=== PATIENT | female | born 1960 | race Caucasian/White ===

== ENCOUNTER → 2017-05-26 | Outpatient (CLI) | payer OTHER | LOC: FIMAGING 12:59 | PROVIDERS: ATTEND Family Medicine | DX: Z12.31 Encounter for screening mammogram for malignant neoplasm of breast (principal) | CPT/HCPCS: G0202 ==

== ENCOUNTER → 2017-06-30 | Outpatient (CLI) | payer OTHER | LOC: FIMAGING 11:12 | PROVIDERS: ATTEND Obstetrics & Gynecology Gynecology | DX: Z13.820 Encounter for screening for osteoporosis (principal); Z87.81 Personal history of (healed) traumatic fracture ==

== ENCOUNTER → 2018-02-07 | Outpatient (CLI) | payer OTHER ==
[~2018-02-07] MED LIST: GADOBUTROL 10 ML VIAL IVP ONE
== END ==
LOC: FIMAGING 12:16
PROVIDERS: ATTEND Family Medicine
DX: R92.8 Other abnormal and inconclusive findings on diagnostic imaging of breast (principal); Z15.01 Genetic susceptibility to malignant neoplasm of breast
CPT/HCPCS: 0159T; A9585; C8908

== ENCOUNTER → 2018-02-27 | Outpatient (CLI) | payer OTHER | LOC: BMCIMAGING 09:18 | PROVIDERS: ATTEND Family Medicine | DX: R92.8 Other abnormal and inconclusive findings on diagnostic imaging of breast (principal) ==

== ENCOUNTER 2018-04-06 07:16 | Outpatient (CLI) | payer OTHER ==
[2018-04-06] MEDS ORDERED: fentaNYL 100 MCG/2 ML INJ IVP PRN (07:33)
[2018-04-06] MEDS ORDERED: FLUMAZENIL 0.5 MG/5 ML MDV IVP PRN (07:33)
[2018-04-06] MEDS ORDERED: NALOXONE HCL 0.4 MG/ML INJ IVP PRN (07:33)
[2018-04-06] MEDS ORDERED: ONDANSETRON 4 MG/2 ML VIAL IVP ONE (07:33)
[2018-04-06] MEDS ORDERED: MIDAZOLAM 2 MG/2 ML VIAL IVP PRN (07:33)
[2018-04-06] MEDS ORDERED: MEPERIDINE 25 MG/ML SYR IVP PRN (07:33)
[2018-04-06] MEDS ORDERED: NS 1,000 ML IV SCH (07:45)
[2018-04-06] MEDS ORDERED: GADOBUTROL 10 ML VIAL IVP ONE (08:44)
[2018-04-06] MEDS ORDERED: BUPIVACAINE 0.5% 30 ML SDV ONE (08:53)
[2018-04-06] MEDS ORDERED: NA BICARBONATE 50 MEQ/50 ML VIAL ONE (08:53)
[2018-04-06] MEDS ORDERED: LIDOCAINE 1% 5 ML SDV ONE (08:53)
--- NOTE | 2018-04-06 09:17 | PDPROPOC ---
Sedation Plan of Care Sedation Plan of Care: vital signs stable, mental status noted, patient educated of risks, benefits, alternatives, patient can tolerate sedation ASA Classification: ASA 1 Planned drugs: fentanyl, midazolam Mallampati Score: Class 2 Mallampati Reference Image: Patient passed 3-3-2 rule?: Yes
--- NOTE | 2018-04-06 09:17 | PDGENHP ---
History & Physical Chief Complaint: abnl breast MRI Relevant Physical Exam: lungs clear, RRR Cardiorespiratory Assessment: lungs clear, RRR
[2018-04-06] MEDS ORDERED: ACETAMINOPHEN 325 MG TAB PO PRN (10:36)
[2018-04-06] MEDS ORDERED: ONDANSETRON 4 MG/2 ML VIAL IVP PRN (10:36)
[2018-04-06 16:16] VITALS: BP 132/65
== END 2018-04-06 11:00 | disposition home or self-care (01) ==
LOC: FIMAGING 07:16
PROVIDERS: ATTEND Family Medicine
PROC: 0HBU3ZX Excision of Left Breast, Percutaneous Approach, Diagnostic (ICD-10-PCS; principal; 2018-04-06)
DX: N60.12 Diffuse cystic mastopathy of left breast (principal)
CPT/HCPCS: A9585; J2250; J2310; J3010

== ENCOUNTER 2018-05-15 10:11 | Observation (INO) | payer OTHER ==
[2018-05-16] MEDS ORDERED: LR 1,000 ML IV ONE (09:45)
[2018-05-16] MEDS ORDERED: BACITRACIN ZINC 14.2 GM OINTTUBE TP ONE (10:03)
[2018-05-16] MEDS ORDERED: BACITRACIN 50,000 UNITS/10 ML SYR IRR ONE (10:04)
[2018-05-16] MEDS ORDERED: ceFAZolin 1 GM/5 ML SYR ONE (10:04)
[2018-05-16] MEDS ORDERED: METHYLENE BLUE 0.5% 50 MG/10 ML AMP ONE (10:04)
[2018-05-16] MEDS ORDERED: GENTAMICIN SULFATE 80 MG/2 ML VIAL ONE (10:04)
--- NOTE | 2018-05-16 10:47 | PDHPUP ---
History & Physical Update H&P update statement: This history and physical update is based on an assessment of the patient which was completed after admission or registration (within 24 hours), but prior to the surgery/procedure. H&P update: H&P reviewed & patient examined, no change in patient's condition since H&P completed
--- NOTE | 2018-05-16 10:51 | POSTOPPROG ---
Post Op Note Date of Operation: 05/16/18 Surgeon: Patrice Lovelace Manager Company: Vianney Lazcano PA-C Anesthesia: GET(General Endotracheal) Pre-op Diagnosis: Atypical ductal hyperplasia Post-op Diagnosis: same Procedure: Bilateral simple mastectomy with left SLNB Findings: Bilateral breast tissue Inf/Abcess present in the surg proc area at time of surgery?: No EBL: Minimal Complications: no immediate Drains: Jamie Guerrero
[2018-05-16] MEDS ORDERED: METOCLOPRAMIDE 10 MG/2 ML VIAL IVP ONE (11:00)
[2018-05-16] MEDS ORDERED: GABAPENTIN 300 MG CAP PO ONE (11:15)
[2018-05-16] MEDS ORDERED: MIDAZOLAM 2 MG/2 ML VIAL IVP ONE (11:25)
--- NOTE | 2018-05-16 11:28 | PDANEPAE ---
ANE History of Present Illness brca ANE Past Medical History - Cardiovascular History Hx Hypertension: No Hx Arrhythmias: No Hx Chest Pain: No Hx Coronary Artery / Peripheral Vascular Disease: No Hx CHF / Valvular Disease: No Hx Palpitations: No - Pulmonary History Hx COPD: No Hx Asthma/Reactive Airway Disease: No Hx Recent Upper Respiratory Infection: No Hx Oxygen in Use at Home: No Hx Sleep Apnea: No Sleep Apnea Screening Result - Last Documented: Negative Pulmonary History Comment: 04/2015-sinus inf., resolving. - Neurologic History Hx Cerebrovascular Accident: No Hx Seizures: No Hx Dementia: No - Endocrine History Hx Diabetes: No - Renal History Hx Renal Disorders: No - Liver History Hx Hepatic Disorders: No - Neurological & Psychiatric Hx Hx Neurological and Psychiatric Disorders: Yes Neurological / Psychiatric History Comment: Depression, anxiety, ADHD. - Cancer History Hx Cancer: Yes Cancer History Comment: skin. new diagnosis breast ca - Congenital Disorder History Hx Congenital Disorders: No - GI History Hx Gastrointestinal Disorders: Yes Gastrointestinal History Comment: Chronic constipation,gastroperisis. - Other Health History Other Health History: Sinus issues. Jaw arthritis. - Chronic Pain History Chronic Pain: No - Surgical History Prior Surgeries: 2014-gallbladder removal; sinus surgery 2014, c section; 2014- R thumb surg. 1999-uterine ablation. 1985-api. 1982-upper & lower jaw revision. 1993-bilateral sinus surg. neck lift 2017 ANE Review of Systems Review of Systems: - Exercise capacity METS (RN): 6 METS ANE Patient History - Allergies Allergies/Adverse Reactions: No Known Allergies Allergy (Verified 05/12/18 14:52) - Home Medications Home Medications: buPROPion XL [Wellbutrin 150mg XL] 450 mg PO DAILY 09/26/15 [Last Taken 07:00] Domperidone 10 mg PO BID 04/04/18 [Last Taken 05/16/18 07:40] Polyethylene Glycol 3350 [Miralax 17 gm (*)] 17 gm PO DAILY 04/04/18 [Last Taken 05/15/18] Herbals/Supplements -Info Only 1 ea PO DAILY 05/10/18 [Last Taken 05/15/18] methYLPHENIDATE HCL [Ritalin 10mg (*)] 10 mg PO DAILY@12 05/10/18 [Last Taken ] methYLPHENIDATE HCL [Ritalin 10mg (*)] 20 mg PO DAILY 05/10/18 [Last Taken 05/15] Keflex 05/16/18 [Last Taken 05/16/18 07:00] - NPO status NPO Since - Liquids (Date): 05/15/18 NPO Since - Liquids (Time): 22:00 NPO Since - Solids (Date): 05/15/18 NPO Since - Solids (Time): 22:00 - Smoking Hx Smoking Status: Never smoked - Family Anes Hx Family Hx Anesthesia Complications: Adopted. ANE Labs/Vital Signs - Vital Signs Blood Pressure: 130/74 Heart Rate: 62 Respiratory Rate: 18 O2 Sat (%): 99 Height: 162.56 cm Weight: 56.699 kg ANE Physical Exam - Airway Neck exam: FROM Mallampati Score: Class 2 Mouth exam: normal dental/mouth exam - Pulmonary Pulmonary: no respiratory distress - Cardiovascular Cardiovascular: regular rate and rhythym - ASA Status ASA Status: II ANE Anesthesia Plan Anesthesia Plan: general endotracheal anesthesia Regional Anesthesia: POPC/PSR
[2018-05-16] MEDS ORDERED: fentaNYL 100 MCG/2 ML INJ ONE ×3 (11:40→15:30)
[2018-05-16] MEDS ORDERED: ROCURONIUM 50 MG/5 ML VIAL ONE (11:40)
[2018-05-16] MEDS ORDERED: PROPOFOL 200 MG/20 ML VIAL ONE (11:40)
[2018-05-16] MEDS ORDERED: ZOLPIDEM TARTRATE 5 MG TAB PO PRN (13:55)
[2018-05-16] MEDS ORDERED: ONDANSETRON 4 MG/2 ML VIAL IVP PRN ×2 (13:55→14:11)
[2018-05-16] MEDS ORDERED: METOCLOPRAMIDE 10 MG/2 ML VIAL IVP PRN (13:55)
[2018-05-16] MEDS ORDERED: ACETAMINOPHEN 325 MG TAB PO PRN (13:55)
[2018-05-16] MEDS ORDERED: NALOXONE HCL 0.4 MG/ML INJ IVP PRN (14:11)
[2018-05-16] MEDS ORDERED: PROMETHAZINE HCL 25 MG/ML INJ IVP PRN (14:11)
[2018-05-16] MEDS ORDERED: ONDANSETRON 4 MG/2 ML VIAL ONE ×2 (14:55→15:30)
[2018-05-16] MEDS ORDERED: KETOROLAC 30 MG/1 ML SDV ONE (14:55)
[2018-05-16] MEDS ORDERED: DEXAMETHASONE 4 MG/ML VIAL ONE (14:56)
[2018-05-16] MEDS ORDERED: PHENYLEPHRINE HCL 100 MCG/ML SYR ONE (14:56)
[2018-05-16] MEDS ORDERED: ePHEDrine SULFATE 25 MG/5 ML SYR ONE (14:56)
--- NOTE | 2018-05-16 15:11 | POSTOPPROG ---
Post Op Note Date of Operation: 05/16/18 Surgeon: Kyle Lagos Windows Application Developer: Marvin BENJAMIN Anesthesia: GET(General Endotracheal) Pre-op Diagnosis: atypical ductal hyperplasia Post-op Diagnosis: Same Indication: atypical ductal hyperplasia Procedure: Tissue sustainable agriculture specialist reconstruction Findings: see op note Inf/Abcess present in the surg proc area at time of surgery?: No EBL: Minimal (20cc) Total fluids administered: 1400c Complications: none Drains: Jamie Guerrero (x4)
[2018-05-16] MEDS ORDERED: METOCLOPRAMIDE 10 MG/2 ML VIAL ONE (15:20)
--- NOTE | 2018-05-16 15:21 | POSTANESTH ---
Post Anesthetic Evaluation Cardiovascular Status: Normal, Stable Respiratory Status: Normal, Stable Level of Consciousness/Mental Status: Can Participate in Eval Pain Control: Adequate, Prn Tx Ordered Nausea/Vomiting Control: Adequate, Prn Tx Ordered Complications Possibly Related to Anesthesia: None Noted
[2018-05-16] MEDS: fentaNYL 100 MCG/2 ML INJ IVP PRN ×2 (15:31→15:49)
--- NOTE | 2018-05-16 15:33 | GOP ---
[f rep st] OPERATIVE REPORT DATE OF OPERATION: 05/16/2018 SURGEON: Kyle Lagos MD APPRENTICE/LINEMAN: equal opportunity assistant is Marvin Simmons, certified dietary manager. ANESTHESIA: General endotracheal. PREOPERATIVE DIAGNOSIS: Atypical ductal hyperplasia and high-risk breast cancer. POSTOPERATIVE DIAGNOSIS: Atypical ductal hyperplasia and high-risk breast cancer. PROCEDURE PERFORMED: 1. Bilateral tissue flare man reconstruction for breast reconstruction. 2. AlloDerm placement. FINDINGS: SPECIMENS: None. ESTIMATED BLOOD LOSS: For my portion of the case was 20 cc. INDICATIONS: This is a 57-year-old female with multiple breast biopsies and the diagnosis of atypica l ductal hyperplasia. Given her high risk of breast cancer within the family, she decided to undergo bilateral risk reducing mastectomies, as well as immediate reconstruction. DESCRIPTION OF PROCEDURE: The patient was previously met in my office where the risks and benefits w ere discussed with her at length, which include, but not limited to infection, bleeding, hematoma, se buffy, partial or total mastectomy skin flap necrosis, paresthesias, asymmetries, contour deformities, and need for further revision surgeries, as well as the risks and complications associated with gene ral anesthesia. She was agreeable to this and therefore signed the operative consent. Prior to margarita g into the operating room, she received a g Ancef for surgical prophylaxis. No urinary catheter was placed for urine monitoring during the length of the case. SCDs were placed for DVT prophylaxis. Pr ior to going asleep, all in the room agreed upon the site and the procedure to be performed. The kishan ateral mastectomy part will be dictated by my colleague, Dr. Patrice Lovelace. We began on the patient's right side and the same procedure was performed on both sides. Once we exa mined the mastectomy skin flaps and deemed them to be viable, we then achieved hemostasis with electr ocautery and washed the pocket out with copious amounts of sterile saline. We began by identifying the lateral border of the pectoralis major muscle and lifted this up off the chest wall using electrocautery and cauterizing any intercostal perforators with electrocautery. Onc e we were happy with the smooth contour of the subpectoral pocket, we dissected both superior, as wel l as medially, and then we detached the inferior border of the pectoralis major muscle off the chest wall. We then measured the base width, which was deemed to be approximately 11 cm; therefore, a 133 MX-11T tissue flare man was used for reconstruction. We then marked the borders of the base plate out with methylene blue, and then, a 12 x 20 cm thick piece of AlloDerm was used to complete the subpect oral pocket. This was cut and contoured and sewn to the patient's IMF, as well as lateral chest wall with running 2-0 Vicryl suture. We then washed out the pocket again with copious amounts of sterile saline, as well as triple antibiotic saline consisting of gentamicin, bacitracin, and Ancef. My partner and I then changed our gloves. We then took all the air out of the tissue flare man in a c losed sterile fashion. This was then placed within the subpectoral pocket. The tabs of the flare man were then sutured down to the chest wall with 2-0 PDS suture to assure correct orientation and no ro tation. The subpectoral pocket was completed by the attaching the superior border of the AlloDerm to the inferior border of pectoralis major muscle with a running 2-0 Vicryl suture. Two 15-English roun d JENNIE drains were placed, 1 within the axilla, 1 along the patient's inframammary fold. This was sutu red to the skin with 2-0 silk suture. Due to the tightness of the skin flaps and the size of the tis leticia flare man, we decided not to inflate the flare man at this time. The same procedure was then performed on the left side. Again, another 133-11T tissue flare man was u tilized, as well as another 12 x 20 piece of AlloDerm to complete the subpectoral pocket. Both maste ctomy skin flaps and the wound was then closed with 3-0 Monocryl subdermal sutures, and the edges wer e approximated with skin nahid. Dressings were placed, which included bacitracin, Xeroform, as wel l as fluffs and Mepilex AG dressings for the drains. Surgical support bra was placed. The patient w as woken and taken to PACU. There were no immediate complications following this case, and the count was correct at the end of the case. INTRAVENOUS FLUIDS: 1400. URINE OUTPUT: Not recorded. COMPLICATIONS: None. /[id number]/MODL
[2018-05-16] MEDS ORDERED: HYDROmorphONE/DILAUDID 1 MG/ML INJ ONE (15:56)
[2018-05-16] MEDS: HYDROmorphONE/DILAUDID 1 MG/ML INJ IVP PRN ×3 (15:58→16:27)
[2018-05-16] MEDS: GABAPENTIN 300 MG CAP PO SCH ×2 (17:26→21:27)
[2018-05-16] MEDS: METOCLOPRAMIDE 10 MG TAB PO SCH ×2 (17:26→23:18)
[2018-05-16] MEDS: CYCLOBENZAPRINE 10 MG TAB PO SCH ×2 (17:26→21:27)
[2018-05-16] MEDS: KETOROLAC 15 MG/1 ML SDV IVP SCH ×2 (17:26→23:18)
--- NOTE | 2018-05-16 19:34 | GOP ---
[f rep st] OPERATIVE REPORT DATE OF OPERATION: 05/16/2018 SURGEON: Patrice Lovelace MD PLASTIC SURGEON: Kyle Lagos MD. FABRICATOR ASSEMBLER METAL PRODUCTS: Vianney Lazcano PA-C. ANESTHESIA: General anesthesia. PREOPERATIVE DIAGNOSIS: 1. Family history of breast carcinoma. 2. Left breast atypical ductal hyperplasia. POSTOPERATIVE DIAGNOSIS: 1. Family history of breast carcinoma. 2. Left breast atypical ductal hyperplasia. PROCEDURE PERFORMED: Bilateral simple mastectomy with left axillary sentinel lymph node sampling with immediate tissue district director reconstruction. FINDINGS: See below. INDICATIONS: 57-year-old female with a strong family history for breast carcinoma. She has developed an area of atypia within her left breast. She strongly desires to undergo bilateral prophylactic mastectomy given her family history and to facilitate future followups. Surgical risks and benefits were explained including bleeding, infection, differential diagnosis regarding her core needle biopsy for atypia, alternative diagnoses, skin flap necrosis, arm edema, nerve injury as well as indications for completion axillary dissection should her lymph nodes prove malignant. All questions were answered. She desires to proceed. A surgical dental assistant is standard and necessary and customary for the safe performance of this procedure. DESCRIPTION OF PROCEDURE: General anesthesia was induced. Bilateral breasts were elliptically incised, incorporating the nipple-areolar complexes. Using electrocautery, skin flaps were created up to the clavicle, sternum, inframammary fold as well as latissimus dorsi muscle laterally. Breasts were peeled from lateral to medial and taken to the pectoralis major fascia. Specimens were taken high up in the axillary tails of [facility]. The left axilla was opened. There was a 2 cm soft lymph node present measuring 160,000 units on the gamma counter, background activity was all less than 100 units. No other palpable adenopathy was present. Satisfactory hemostasis was ensured throughout bilateral breast envelopes. Care of the case was turned to for district director placement and wound closure. /[id number]/MODL MTDD
[2018-05-16] MEDS ORDERED: POLYETHYLENE GLYCOL 3350 17 GM PKT PO SCH (21:00)
[2018-05-16] MEDS: HYDROCODONE/APAP 5/325 TAB PO PRN (21:27)
[2018-05-16] MEDS: DOMPERIDONE 10 MG PO SCH (21:28)
[2018-05-16] MEDS: CEPHALEXIN 500 MG CAP PO SCH (23:13)
[2018-05-17] MEDS: KETOROLAC 15 MG/1 ML SDV IVP SCH (05:25)
[2018-05-17] MEDS: CEPHALEXIN 500 MG CAP PO SCH (05:26)
[2018-05-17] MEDS: METOCLOPRAMIDE 10 MG TAB PO SCH (05:26)
--- NOTE | 2018-05-17 07:02 | SOAPPROG ---
SOAP Progress Note Assessment/Plan: Assessment:no overnight issues. min pain. no nausea. voiding. ambulating. avss. comfortable. flaps pink. drains serosang. doing very well. home today. Plan: 05/17/18 07:01 Objective: Vital Signs Temp Pulse Resp BP Pulse Ox 36.6 C 62 16 117/68 92 05/17/18 05:28 05/17/18 05:28 05/17/18 05:28 05/17/18 05:28 05/17/18 05:28 05/16/18 05/17/18 05/18/18 05:59 05:59 05:59 Intake Total 2895 Output Total 1322 Balance 1573 ICD10 Worksheet Patient Problems: Problems Problem Status Onset Abdominal pain, chronic, right upper quadrant Acute Cholelithiasis and acute cholecystitis without obstruction Acute
[2018-05-17] MEDS: HYDROCODONE/APAP 5/325 TAB PO PRN (07:13)
[2018-05-17 07:33] VITALS: BP 126/67
[2018-05-17] MEDS: GABAPENTIN 300 MG CAP PO SCH (08:06)
[2018-05-17] MEDS: CYCLOBENZAPRINE 10 MG TAB PO SCH (08:06)
[2018-05-17] MEDS: DOMPERIDONE 10 MG PO SCH (08:18)
[2018-05-17] MEDS ORDERED: buPROPion XL 150 MG TAB PO SCH (09:00)
--- NOTE | 2018-05-17 17:41 | ASMTLACE ---
LACE Length of stay for Answers: 1 day current admission Acuity / Level of Answers: No Care: Did the patient have an inpatient admission? Comorbidities - select Answers: Any tumor (including all that apply lymphoma or leukemia) # of Emergency department Answers: 0 visits in the last 6 months Score: 3 Date Signed: 05/17/2018 05:40 PM Electronically Signed By:Rosie Lemos RN
--- NOTE | 2018-05-17 17:44 | ASDISCHSUM ---
Discharge Information Plan Status:Home with No Needs Medically Cleared to Leave:05/17/2018 Discharge Date:05/17/2018 10:27 AM CM D/C Disposition:Home, Routine, Self-Care ADT D/C Disposition:Home, Routine, Self-Care Projected Discharge Date:05/17/2018 10:27 AM Transportation at D/C:Family Discharge Delay Reason: Follow-Up Date:05/17/2018 10:27 AM Discharge Slot:2 - 12:01 pm - 18:00 pm Final Diagnosis:Atypical ductal hyperplasia left breast, s/p bilateral mastectomy Placement Information Patient Contact Information Contact Name:OSCAR Relationship: [address] [place] Alternate Phone: [facility]/Zip Code:[place] [address] Email: Financial Information Financial Class:[employer] Primary Plan Desc:[facility] Primary Plan Number:[id number] Secondary Plan Desc: Secondary Plan Number: Assessment Information LACE LACE Length of stay for Answers: 1 day current admission Acuity / Level of Answers: No Care: Did the patient have an inpatient admission? Comorbidities - select Answers: Any tumor (including all that apply lymphoma or leukemia) # of Emergency department Answers: 0 visits in the last 6 months Score: 3 Date Signed: 05/17/2018 05:40 PM Electronically Signed By:Rosie Lemos RN [facility] CM Progress Note CM Note CM Note Notes: Pt admitted for bilateral simple mastectomy secondary to atypical ductal hyperplasia and family history of carcinoma. Per MD notes, pt to discharge home independently with family support and no identified needs. No PT/OT orders. No IM signed, not applicable. Pt to follow up as directed. CM available for any further issues or concerns. Discharge Plan: Home independently with family support Date Signed: 05/17/2018 05:42 PM Electronically Signed By:Rosie Lemos RN Intervention Information
== END 2018-05-17 10:27 | disposition home or self-care (01) ==
LOC: F3N 05-16 09:04 → INTOOBSV 05-16 09:04 → F1N 05-16 17:13
PROVIDERS: ADMIT Surgery; ATTEND Surgery
PROC: 3E0W3HZ Introduction of Radioactive Substance into Lymphatics, Percutaneous Approach (ICD-10-PCS; 2018-05-16)
PROC: 07B60ZX Excision of Left Axillary Lymphatic, Open Approach, Diagnostic (ICD-10-PCS; principal; 2018-05-16 11:30)
PROC: 0HTV0ZZ Resection of Bilateral Breast, Open Approach (ICD-10-PCS; principal; 2018-05-16 11:30)
PROC: 0HHV0NZ Insertion of Tissue Expander into Bilateral Breast, Open Approach (ICD-10-PCS; 2018-05-16 11:30)
DX: N60.82 Other benign mammary dysplasias of left breast (principal); I10 Essential (primary) hypertension; K31.84 Gastroparesis; Z80.3 Family history of malignant neoplasm of breast; Z80.41 Family history of malignant neoplasm of ovary; Z15.01 Genetic susceptibility to malignant neoplasm of breast
CPT/HCPCS: 19303; 19357; 38525; 38792; A9520; G0378; J0690; J1100; J1170; J1580; J1885; J2250; J2370; J2405; J2704; J2765; J3010; Q4116; Q9968